=== PATIENT | male | born 1980 | race Caucasian/White ===

== ENCOUNTER 2020-10-20 19:01 | Observation (INO) ==
[2020-10-20] MEDS ORDERED: MORPHINE 4 MG/1 ML VIAL IV STA ×2 (19:31→22:51)
[2020-10-20] MEDS ORDERED: ONDANSETRON 4 MG/2 ML VIAL IV STA (19:31)
[2020-10-20] MEDS ORDERED: SODIUM CHLORIDE 0.9% 1,000 ML IV STA (19:31)
[2020-10-20 19:59] LABS: Basophils # 0.1 10*3/uL (0.0-0.2); Basophils % 0.5 % (0.0-0.8); Eosinophils # 0.1 10*3/uL (0.0-0.87); Eosinophils % 0.4 % (0.00-10.9); Hematocrit 45.4 VOL% (42.0-52.0); Hemoglobin 15.8 GM/DL (14.0-18.0); Immature Granulocytes % 0.5 %; Immature Granulocytes Absolute 0.06 #; Lymphocytes # 1.1 10*3/uL (1.4-4.0); Lymphocytes % 8.1 % (21.2-54.2); Mean Corpuscular HGB Conc 34.8 GM/DL (32-36); Mean Corpuscular Volume 89.5 FL (87-102); Mean Platelet Volume 9.1 FL (9.6-12.0); Neutrophils % 83.5 % (38.7-73.9); Platelet Count 270 T/CUMM (130-400); Red Blood Count 5.07 MC/CUMM (3.8-5.5); Red Cell Distribution Width 12.7 % (9.3-17.3); White Blood Count 13.2 T/CUMM (4-12)
[2020-10-20 20:14] LABS: INR 1.1; PT Patient Result 12.1 SECS (9.8-11.9); Partial Thromboplastin Time 31.5 SECS (23.9-33.8)
[2020-10-20 20:27] LABS: Calcium 10.3 MG/DL (8.5-10.1); Osmolality,Calculated 272.2 MOS/KG (273-304)
[2020-10-20] MEDS ORDERED: PIPERACILLIN/TAZOBACTAM 3,375 MG in SODIUM CHLORIDE 0.9% 100 ML IV STA (22:43)
[2020-10-20] MEDS ORDERED: VANCOMYCIN INJ 1,000 MG in SODIUM CHLORIDE 0.9% 250 ML IV STA (22:43)
[2020-10-20] MEDS ORDERED: ONDANSETRON 4 MG/2 ML VIAL IV PRN (22:48)
[2020-10-20] MEDS ORDERED: HYDROmorphone 2 MG/1 ML VIAL IV PRN (22:48)
[2020-10-20] MEDS ORDERED: DEXTROSE 5% NACL 0.9% 1,000 ML IV SCH (23:00)
[2020-10-21] MEDS ORDERED: PIPERACILLIN/TAZOBACTAM 3,375 MG VIAL IV ONE (00:03)
[2020-10-21] MEDS ORDERED: PANTOPRAZOLE 40 MG TABLET PO SCH (09:00)
[2020-10-21] MEDS ORDERED: GLYCOPYRROLATE 0.4 MG/2 ML VIAL ONE (10:13)
[2020-10-21] MEDS ORDERED: SUCCINYLCHOLINE 200 MG/10 ML VIAL ONE (10:13)
[2020-10-21] MEDS ORDERED: ONDANSETRON 4 MG/2 ML VIAL ONE (10:13)
[2020-10-21] MEDS ORDERED: LIDOCAINE 2% 5 ML VIAL ONE (10:13)
[2020-10-21] MEDS ORDERED: propofoL 200 MG/20 ML VIAL IV ONE (10:13)
[2020-10-21] MEDS ORDERED: fentaNYL 100 MCG/2 ML VIAL ONE (10:14)
[2020-10-21] MEDS ORDERED: ONDANSETRON 4 MG/2 ML VIAL IV PRN ×2 (10:59→13:13)
[2020-10-21] MEDS ORDERED: MIDAZOLAM 2 MG/2 ML VIAL ONE (11:01)
[2020-10-21] MEDS ORDERED: SEVOFLURANE 1 UNIT/15 MINUTE INH ONE (11:42)
[2020-10-21] MEDS: HYDROmorphone 2 MG/1 ML VIAL IV PRN ×2 (11:44→11:57)
[2020-10-21] MEDS ORDERED: DEXTROSE 50% 25 GM/50 ML VIAL IV PRN (13:13)
[2020-10-21] MEDS ORDERED: KETOROLAC 15 MG/1 ML VIAL IV PRN (13:13)
[2020-10-21] MEDS ORDERED: PROMETHAZINE 25 MG/1 ML VIAL IM PRN (13:13)
[2020-10-21] MEDS ORDERED: HYDROmorphone 2 MG/1 ML VIAL IV PRN (13:13)
[2020-10-21] MEDS ORDERED: GLUCAGON 1 MG VIAL IM PRN (13:13)
[2020-10-21] MEDS: LACTATED RINGERS 1,000 ML IV SCH ×2 (14:32→22:32)
[2020-10-21] MEDS: CLINDAMYCIN INJ 900 MG in PREMIX 1 EACH IV SCH ×2 (14:33→21:48)
[2020-10-21] MEDS ORDERED: hydrOXYzine HCL 25 MG TABLET PO SCH (21:00)
[2020-10-21] MEDS: oxyCODONE/ACETAMINOPHEN 5-325 MG TABLET PO PRN (21:49)
[2020-10-22] MEDS: CLINDAMYCIN INJ 900 MG in PREMIX 1 EACH IV SCH (05:40)
[2020-10-22] MEDS: oxyCODONE/ACETAMINOPHEN 5-325 MG TABLET PO PRN (05:48)
[2020-10-22 06:00] LABS: Basophils # 0.1 10*3/uL (0.0-0.2); Basophils % 0.5 % (0.0-0.8); Eosinophils # 0.3 10*3/uL (0.0-0.87); Eosinophils % 2.7 % (0.00-10.9); Hematocrit 42.7 VOL% (42.0-52.0); Hemoglobin 14.2 GM/DL (14.0-18.0); Immature Granulocytes % 0.9 %; Lymphocytes # 1.5 10*3/uL (1.4-4.0); Lymphocytes % 13.4 % (21.2-54.2); Mean Corpuscular HGB Conc 33.3 GM/DL (32-36); Mean Corpuscular Volume 92.8 FL (87-102); Mean Platelet Volume 9.6 FL (9.6-12.0); Monocytes % 10.3 % (1.7-12.7); Neutrophils % 72.2 % (38.7-73.9); Platelet Count 278 T/CUMM (130-400); Red Cell Distribution Width 13.1 % (9.3-17.3); White Blood Count 11.3 T/CUMM (4-12)
[2020-10-22] MEDS ORDERED: ENOXAPARIN 40 MG/0.4 ML SYRINGE SUBCUT SCH (06:00)
[2020-10-22 06:30] LABS: Osmolality,Calculated 278.5 MOS/KG (273-304)
[2020-10-22] MEDS: LACTATED RINGERS 1,000 ML IV SCH ×2 (07:37→12:36)
[2020-10-22] MEDS ORDERED: CINACALCET 30 MG TABLET PO SCH (09:00)
[2020-10-22] MEDS ORDERED: FENOFIBRATE 160 MG TABLET PO SCH (09:00)
[2020-10-22] MEDS ORDERED: allopurinoL 100 MG TABLET PO SCH (09:00)
[2020-10-22] MEDS ORDERED: CHOLECALCIFEROL 1,000 UNIT TABLET PO SCH (09:00)
[2020-10-22 12:04] VITALS: BP 141/90
== END 2020-10-22 14:02 | disposition home health service (06) ==
LOC: N.EDINP 19:01 → N.ED 19:01 → N.EDINP 10-21 00:35 → N.5E 10-21 01:14
PROVIDERS: ADMIT Surgery; ATTEND Surgery

== ENCOUNTER 2023-01-11 19:51 | Observation (INO) ==
[2023-01-11] MEDS ORDERED: PIPERACILLIN/TAZOBACTAM 3,375 MG in SODIUM CHLORIDE 0.9% 100 ML IV STA (20:22)
[2023-01-11 20:55] LABS: Basophils # 0.1 10*3/uL (0.0-0.2); Basophils % 0.9 % (0.0-0.8); Eosinophils # 0.2 10*3/uL (0.0-0.87); Eosinophils % 2.3 % (0.00-10.9); Hematocrit 45.5 VOL% (42.0-52.0); Hemoglobin 15.2 GM/DL (14.0-18.0); Immature Granulocytes % 0.3 %; Immature Granulocytes Absolute 0.03 #; Lymphocytes # 2.4 10*3/uL (1.4-4.0); Lymphocytes % 24.1 % (21.2-54.2); Mean Corpuscular HGB Conc 33.4 GM/DL (32-36); Mean Corpuscular Volume 89.4 FL (87-102); Monocytes # 0.8 10*3/uL (0.11-0.8); Monocytes % 8.1 % (1.7-12.7); Neutrophils % 64.3 % (38.7-73.9); Platelet Count 327 T/CUMM (130-400); Red Blood Count 5.09 MC/CUMM (3.8-5.5); Red Cell Distribution Width 13.2 % (9.3-17.3); White Blood Count 10.01 T/CUMM (4-12)
[2023-01-11] MEDS ORDERED: SODIUM CHLORIDE 0.9% 1,000 ML IV SCH (21:00)
[2023-01-11 21:10] LABS: PT Patient Result 10.7 SECS (10.1-12.1)
[2023-01-11 21:26] LABS: Albumin 3.8 G/DL (3.4-5.0); Bilirubin,Total 0.4 MG/DL (0.20-1.00); Calcium 10.2 MG/DL (8.5-10.1); Osmolality,Calculated 283.3 MOS/KG (273-304); Total Protein 7.8 G/DL (6.4-8.2)
[2023-01-12] MEDS ORDERED: HYDROmorphone 1 MG/1 ML SYRINGE IV PRN (07:59)
[2023-01-12] MEDS ORDERED: SODIUM CHLORIDE 0.9% 1,000 ML IV SCH (07:59)
[2023-01-12] MEDS ORDERED: ACETAMINOPHEN 325 MG TABLET PO PRN (07:59)
[2023-01-12] MEDS ORDERED: ONDANSETRON 4 MG/2 ML VIAL IV PRN (07:59)
[2023-01-12] MEDS ORDERED: PANTOPRAZOLE 40 MG TABLET PO SCH (09:00)
[2023-01-12] MEDS ORDERED: PIPERACILLIN/TAZOBACTAM 3,375 MG in SODIUM CHLORIDE 0.9% 100 ML IV SCH (09:00)
[2023-01-12] MEDS ORDERED: oxyCODONE/ACETAMINOPHEN 5-325 MG TABLET PO PRN (10:10)
[2023-01-12] MEDS ORDERED: LOSARTAN/HCTZ 50-12.5 MG TABLET PO SCH (10:30)
[2023-01-12] MEDS ORDERED: LIDOCAINE 1%/EPI INJ 20 ML VIAL ONE (11:55)
[2023-01-12] MEDS ORDERED: BUPIVACAINE MPF 0.25% 10 ML VIAL ONE (11:55)
[2023-01-12] MEDS ORDERED: MIDAZOLAM 2 MG/2 ML VIAL ONE (12:08)
[2023-01-12] MEDS ORDERED: fentaNYL 100 MCG/2 ML VIAL ONE (12:08)
[2023-01-12] MEDS ORDERED: SUCCINYLCHOLINE 200 MG/10 ML VIAL ONE (12:12)
[2023-01-12] MEDS ORDERED: propofoL 200 MG/20 ML VIAL IV ONE (12:12)
[2023-01-12] MEDS ORDERED: ONDANSETRON 4 MG/2 ML VIAL ONE (12:12)
[2023-01-12] MEDS ORDERED: SEVOFLURANE 1 UNIT/15 MINUTE INH ONE (12:12)
[2023-01-12] MEDS ORDERED: ROCURONIUM 50 MG/5 ML VIAL IV ONE (12:12)
[2023-01-12] MEDS ORDERED: LIDOCAINE 2% 5 ML VIAL ONE (12:12)
[2023-01-12] MEDS ORDERED: LABETALOL 20 MG/4 ML SYRINGE IV ONE (13:14)
[2023-01-12] MEDS ORDERED: hydrALAZINE 20 MG/1 ML VIAL IV ONE ×2 (13:37→13:47)
[2023-01-12] MEDS ORDERED: hydrALAZINE 20 MG/1 ML VIAL ONE (13:37)
[2023-01-12 16:50] VITALS: BP 132/84
[2023-01-12] MEDS ORDERED: allopurinoL 100 MG TABLET PO SCH (21:00)
[2023-01-12] MEDS ORDERED: CINACALCET 30 MG TABLET PO SCH (21:00)
[2023-01-12] MEDS ORDERED: FENOFIBRATE 160 MG TABLET PO SCH (21:00)
[2023-01-12] MEDS ORDERED: amLODIPine 5 MG TABLET PO SCH (21:00)
[2023-01-12] MEDS ORDERED: CLINDAMYCIN 300 MG CAPSULE PO SCH (22:00)
== END 2023-01-12 17:55 | disposition home health service (06) ==
LOC: N.ED 19:51 → N.EDINP 19:51 → N.2E 01-12 07:52
PROVIDERS: ADMIT Emergency Medicine; ATTEND Surgery